=== PATIENT | female | born 1940 | race Caucasian/White ===

== ENCOUNTER 2017-06-04 16:01 | Emergency (ER) | payer MEDICARE ==
[2017-06-04 16:09] VITALS: BP 115/64
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
[2017-06-04] MEDS ORDERED: ACETAMINOPHEN 325 MG TABLET PO ONE (17:20)
[2017-06-04] MEDS ORDERED: ACETAMINOPHEN 325 MG TABLET ONE (17:41)
== END 2017-06-04 18:10 | disposition home or self-care (01) ==
LOC: ER 16:01
DX: M25.511 Pain in right shoulder (principal); V89.2XXA Person injured in unspecified motor-vehicle accident, traffic, initial encounter; Y93.89 Activity, other specified; Y92.9 Unspecified place or not applicable; Y99.9 Unspecified external cause status